=== PATIENT | male | born 1960 | race Caucasian/White ===

== ENCOUNTER → 2017-02-06 | Outpatient (REF) | LOC: WSOH 09:58 | DX: Z02.4 Encounter for examination for driving license (principal) | CPT/HCPCS: G0463 ==

== ENCOUNTER 2018-03-01 09:01 | Day surgery (SDC) | payer BC ==
[~2018-03-01] VITALS: Ht 213.4 cm; Wt 84.5 kg
[2018-03-01 09:51] VITALS: BP 115/75; PULSE 60; TEMP 98
[2018-03-01] MEDS ORDERED: PRINIVIL5 MG PO (09:57)
[2018-03-01] MEDS ORDERED: ZOCOR 40MG40 MG PO (09:58)
[2018-03-01] MEDS ORDERED: GLUCOPHAGE500 MG/TAB PO (09:58)
[2018-03-01] MEDS ORDERED: CINNAMON500 MG PO (09:59)
[2018-03-01] MEDS ORDERED: NATURE'S BLEND600 M2 PO (10:00)
[2018-03-01] MEDS ORDERED: CHROMIUM PICOLI1 TA8 PO (10:01)
[2018-03-01] MEDS ORDERED: PROBIOTIC FORMU1 CAP PO (10:01)
[2018-03-01 11:20] VITALS: BP 106/69; PULSE 16; TEMP 97.8
[2018-03-01 11:35] VITALS: BP 101/71; PULSE 55
== END 2018-03-01 11:40 | disposition home or self-care (01) ==
LOC: SDCO 09:01
DX: Z12.11 Encounter for screening for malignant neoplasm of colon (principal); Z86.010 Personal history of colon polyps; Z80.0 Family history of malignant neoplasm of digestive organs
CPT/HCPCS: J2250; J2405; J3010; J7042

== ENCOUNTER 2021-04-29 06:07 | Day surgery (SDC) | payer BC ==
[~2021-04-29] VITALS: Ht 185.4 cm; Wt 85.8 kg
[~2021-04-29 06:07] MED LIST: CHROMIUM PICOLI1 TA8 PO; CINNAMON500 MG PO; GLUCOPHAGE500 MG/TAB PO; NATURE'S BLEND600 M2 PO; PRINIVIL5 MG PO; PROBIOTIC FORMU1 CAP PO; ZOCOR 40MG40 MG PO
[2021-04-29 06:54] VITALS: BP 123/75; PULSE 68; TEMP 98
[2021-04-29] MEDS ORDERED: ONE-A-DAY ESSE1 EACH PO (07:00)
[2021-04-29] MEDS ORDERED: VITAMIN C500 MG PO (07:00)
[2021-04-29] MEDS ORDERED: JANUVIA 100MG100 MG PO (07:00)
[2021-04-29 07:45] VITALS: BP 101/75; PULSE 64; TEMP 97.7
--- NOTE | 2021-04-29 07:45 | NUR ---
Pt returns to [place] [facility] from [facility], ambulates to recliner without difficulty, awake and alert. VSS. at bedside. Call light in reach.
[2021-04-29 08:00] VITALS: BP 108/75; PULSE 65
--- NOTE | 2021-04-29 08:00 | NUR ---
Pt tolerates a muffin and water well, denies pain or nausea. VSS. Pt wanting to go home. Call light in reach.
[2021-04-29 08:15] VITALS: BP 117/71; PULSE 64
--- NOTE | 2021-04-29 08:15 | NUR ---
Pt's IV discontinued, pt gets dressed, discharge instructions provided and pt okay with not waiting to talk with Dr. Quesada he just wants to go home. Pt taken by wheelchair and left in care of his at 0820.
== END 2021-04-29 08:20 | disposition home or self-care (01) ==
LOC: SDCO 06:07
DX: Z12.11 Encounter for screening for malignant neoplasm of colon (principal); I10 Essential (primary) hypertension; E78.5 Hyperlipidemia, unspecified; E11.9 Type 2 diabetes mellitus without complications; Z20.822 Contact with and (suspected) exposure to COVID-19; Z86.010 Personal history of colon polyps; Z79.899 Other long term (current) drug therapy; Z79.84 Long term (current) use of oral hypoglycemic drugs; Z80.0 Family history of malignant neoplasm of digestive organs
CPT/HCPCS: J2704; J7120